=== PATIENT | male | born 1980 | race Caucasian/White ===

== ENCOUNTER 2017-05-25 21:23 | Emergency (ER) | payer OTHER ==
[2017-05-25 21:51] LABS: BASOPHILS % (AUTO) 0.9 % (0.0-5.0); EOSINOPHILS % (AUTO) 1.8 % (0.0-8.0); HEMATOCRIT 43.1 % (42-54); MEAN CORPUSCULAR HEMOGLOBIN 28.7 pg (27.0-33.0); MEAN CORPUSCULAR HGB CONC 34.4 g/dL (32.0-36.0); MEAN CORPUSCULAR VOLUME 83.3 fL (79-99); NEUTROPHILS % (AUTO) 67.3 % (40.0-77.0); PLATELET COUNT (AUTO) 184 K/uL (130-400); RED BLOOD CELL COUNT(AUTO) 5.17 MIL/uL (4.50-6.20); RED CELL DISTRIBUTION WIDTH 13.3 % (11.0-15.5)
[2017-05-25] MEDS ORDERED: ASPIRIN 325 MG TABLET ONE (21:58)
[2017-05-25 21:59] LABS: INR 0.96 (0.85-1.15); PARTIAL THROMBOPLASTIN TIME 24.5 SEC (26.3-35.5); PROTHROMBIN TIME 10.1 SEC (9.6-11.6)
[2017-05-25 22:00] LABS: CARBON DIOXIDE 27 mmol/L (21-32); CHLORIDE 99 mmol/L (101-111); GLOMERULAR FILTR. RATE CALC 90 mL/min (>60); GLUCOSE,RANDOM 166 mg/dL (70-105); POTASSIUM 3.6 mmol/L (3.5-5.1); SODIUM SERUM 136 mmol/L (136-145); UREA NITROGEN, BLOOD 10 mg/dL (7-18)
[2017-05-25] MEDS ORDERED: ACETAMINOPHEN EXTRA STRENGTH 500 MG TABLET ONE (22:09)
[2017-05-25 22:13] LABS: ALANINE AMINOTRANSFERASE 62 U/L (12-78); ALBUMIN 3.9 g/dL (3.5-5.0); ASPARTATE AMINOTRANSFERASE 32 U/L (10-37); BILIRUBIN,TOTAL 2.7 mg/dL (0.2-1.0); CREATINE KINASE MB < 0.5 ng/mL (0.5-3.6); CREATINE KINASE, TOTAL 92 U/L (21-232); MYOGLOBIN 23 ng/mL (10-92); TOTAL PROTEIN, SERUM 7.9 g/dL (6.0-8.3)
[2017-05-25] MEDS ORDERED: LEVOFLOXACIN 500 MG TABLET ONE (23:58)
[2017-05-25] MEDS ORDERED: SODIUM CHLORIDE 0.9% 1000ML 1,000 ML IV ONE (23:58)
== END 2017-05-26 01:13 | disposition home or self-care (01) ==
LOC: EDH 21:23
DX: J18.9 Pneumonia, unspecified organism (principal); R07.89 Other chest pain; Z88.0 Allergy status to penicillin; Z88.8 Allergy status to other drugs, medicaments and biological substances
CPT/HCPCS: 36415; 71045; 80053; 82550; 82553; 83874; 84484; 85025; 85610; 85730; 87804 ×2; 93005; 94761; 96360; 99285; J7030